=== PATIENT | male | born 1980 | race American Indian/Alaskan Native ===

== ENCOUNTER 2016-10-27 23:42 | Emergency (ER) | payer SELFPAY ==
--- NOTE | ~2016-10-27 | ER ---
PATIENT'S NAME: ARYAN [facility] AGE: 36 Y [address] ROOM: [place] [address] LOCATION: [facility] ADMIT DATE: 10/27/2016 ER/Outpatient Report DISCHARGE DATE: 10/28/2016 FAMILY PHYSICIAN: PHYSICIAN, NO ATTENDING PHYSICIAN: John Polo TIME OF ARRIVAL: 2344 hours. TIME OF EXAM: 2344 hours. CHIEF COMPLAINT: Left ear pain. HISTORY OF PRESENT ILLNESS: The patient states he has had pain in his left ear for the last 5 days. It is painful to move the ear. He has not really felt as though he is running a fever. He has not had a sore throat. He has a bit of a runny nose, but denies having a cough. He states he has been using some earwax drops in his ear in the last 2 days with minimal results. ALLERGIES: NO KNOWN ALLERGIES. CURRENT MEDICATIONS: No current medications. He did take some ibuprofen 400 mg approximately 2 hours prior to arrival. PAST MEDICAL HISTORY: Benign. PAST SURGERIES: Negative. SOCIAL HISTORY: Smokes approximately 5 cigarettes per day. Denies use of drugs and alcohol. REVIEW OF SYSTEMS: Negative other than those mentioned in the HPI. PHYSICAL EXAMINATION: VITAL SIGNS: He weighed 151.8 kg. Blood pressure is 158/93, pulse is 78, respirations 16, temp of 97.1, and O2 sats 96% on room air. GENERAL: He is awake, alert, and oriented x4. PATIENT'S NAME: ARYAN [facility]CD[facility] AGE: 36 Y [address] ROOM: [place] [address] LOCATION: [facility] ADMIT DATE: 10/27/2016 ER/Outpatient Report DISCHARGE DATE: 10/28/2016 FAMILY PHYSICIAN: PHYSICIAN, NO ATTENDING PHYSICIAN: John Polo SKIN: [place], warm, and dry. RESPIRATIONS: Even and nonlabored. Lung sounds are clear throughout. HEART: Regular rate and rhythm. HEENT: Left ear is tender with movement. Left external ear canal is reddened and edematous, has a creamy colored drainage. He does have earwax making it difficult to see the tympanic membrane. Right canal is clear. Tympanic membrane is pearly kwong. Nasopharynx is boggy. Oropharynx is clear posteriorly. NECK: Supple. No lymphadenopathy. IMPRESSION: Left external otitis EMERGENCY DEPARTMENT COURSE: The patient was given Redgranite 5/325 x2 tablets for his pain. Prescription was written for Cortisporin otic drops to do 4 drops in the ear t.i.d. for the next week if his symptoms persist or worsen. I encouraged him to follow up with his primary provider or Ears, Nose Throat doctor in the next 2 to 3 days. He verbalized understanding. OSCAR TURNER APRN FOR DO ARNULFO MACKEY/refugio /[id number] d: 10/28/16 0354 t: 11/04/16 1623, OUTPATIENT REPORT
== END 2016-10-28 00:04 | disposition disaster alternative care site (69) ==
LOC: GMED 23:42
DX: H60.92 Unspecified otitis externa, left ear (principal); F17.210 Nicotine dependence, cigarettes, uncomplicated